=== PATIENT | male | born 1975 | race Caucasian/White ===

== ENCOUNTER 2025-07-13 09:50 | Inpatient (IN) | payer OTHER ==
[2025-07-13 10:10] VITALS: BMI 25.8
[2025-07-13] MEDS ORDERED: MAGNESIUM HYDROX 2400MG/30ML ORAL SUSPENSION 30 ML CUP PO PRN (10:25)
[2025-07-13] MEDS ORDERED: POLYETHYLENE GLYCOL (HEALTHYLAX) 3350 17 GM PACKET PO PRN (10:25)
[2025-07-13] MEDS ORDERED: BENZONATATE 200 MG CAPSULE PO PRN (10:25)
[2025-07-13] MEDS ORDERED: NALOXONE (NARCAN) HCL 4 MG/0.1 ML SPRAY NS PRN (10:25)
[2025-07-13] MEDS ORDERED: hydrOXYzine PAMOATE 25 MG CAPSULE (FP) PO PRN (10:25)
[2025-07-13] MEDS ORDERED: guaiFENesin 600 MG TABLET.ER (FP) PO PRN (10:25)
[2025-07-13] MEDS: NICOTINE 21 MG/24 HOURS TOPICAL PATCH TD SCH (11:38)
[2025-07-13] MEDS: NICOTINE POLACRILEX 2 MG LOZENGE BC PRN (19:05)
[2025-07-13] MEDS: THIAMINE 100 MG TABLET PO SCH (21:07)
[2025-07-13] MEDS: MELATONIN 5 MG TABLETS PO SCH (21:07)
[2025-07-14] MEDS: PRENATAL VITAMINS W/ FOLIC ACID TABLET (FP) PO SCH (09:37)
[2025-07-14 11:37] LABS: MCHC 32.7 g/dl (32.3-36.5); MEAN CELL VOLUME 89.0 fl (79.0-92.2); MEAN PLT VOLUME 12.5 fl (9.4-12.4); RDW 12.7 % (12.2-16.1)
[2025-07-14 12:02] LABS: GLUCOSE,RANDOM 189.0 mg/dL (74-106)
[2025-07-14 12:03] LABS: TOT PROT 7.5 g/dl (6.4-8.2)
[2025-07-14 12:04] LABS: CO2 27.0 mmol/L (21-32)
[2025-07-14 12:06] LABS: ALK PHOS 62.0 U/L (40-150)
[2025-07-14 12:08] LABS: CREATININE 1.1 mg/dL (0.55-1.3); SGOT/AST 29.0 U/L (5-34); SGPT/ALT 36.0 U/L (0-55)
[2025-07-14 17:04] LABS: MCHC 32.9 g/dl (32.3-36.5); MEAN CELL VOLUME 88.4 fl (79.0-92.2); MEAN PLT VOLUME 11.5 fl (9.4-12.4); RDW 12.7 % (12.2-16.1)
[2025-07-15] MEDS: BENZOCAINE/MENTHOL (CHLORASEPTIC ) LOZENGE MM PRN (07:51)
[2025-07-15 18:29] LABS: URINE APPEARANCE Clear; URINE BILIRUBIN Negative (NEGATIVE); URINE COLOR Yellow; URINE GLUCOSE (UA) Negative (NEGATIVE); URINE KETONE Negative (NEGATIVE); URINE LEUK ESTERASE Negative (NEGATIVE); URINE NITRITE Negative (NEGATIVE); URINE PROTEIN Negative (NEGATIVE); URINE UROBILINOGEN 0.2 mg/dL (0.2-1.0)
[2025-07-17] MEDS: IBUPROFEN 600 MG TABLET (FP) PO PRN (10:21)
[2025-07-18] MEDS: ACETAMINOPHEN 325 MG TABLET (FP) PO PRN (04:04)
[2025-07-20] MEDS: IBUPROFEN 400 MG TABLET (FP) PO PRN (04:14)
[2025-07-23] MEDS: MAG HYDROX/AL HYDROX/SIMETH 30 ML UNIT-DOSE CUP PO PRN (07:09)
[2025-07-24] MEDS: LOPERAMIDE HCL 2 MG CAPSULE PO PRN (14:34)
[2025-07-26] MEDS ORDERED: OXYMETAZOLINE 0.05% NASAL SOLUTION 15 ML BOTTLE NS PRN (10:49)
[2025-07-26] MEDS: OXYMETAZOLINE 0.05% NASAL SOLUTION 15 ML BOTTLE NS PRN (15:58)
[2025-07-31 06:37] VITALS: RESP 18
[2025-08-02 06:26] VITALS: TEMP 96.9
[2025-08-02 08:54] VITALS: BP 101/68; PULSE 81
== END 2025-08-02 09:55 | disposition home or self-care (01) | DRG 772 ==
LOC: YASAS 09:50 → SUATTDRO 09:50 → Y3NR 10:55 → Y3W 07-14 10:45 → Y5N 07-14 10:48
PROVIDERS: ADMIT Family Medicine; ATTEND Psychiatry & Neurology Pain Medicine
PROC: HZ42ZZZ Group Counseling for Substance Abuse Treatment, Cognitive-Behavioral (ICD-10-PCS; principal; 2025-07-13)
DX: F11.20 Opioid dependence, uncomplicated (principal); F14.20 Cocaine dependence, uncomplicated; F10.20 Alcohol dependence, uncomplicated; F17.210 Nicotine dependence, cigarettes, uncomplicated; F39 Unspecified mood [affective] disorder; F43.10 Post-traumatic stress disorder, unspecified; J45.909 Unspecified asthma, uncomplicated; F31.9 Bipolar disorder, unspecified
CPT/HCPCS: 36415; 72156-TC; 72157-TC; 72158-TC; 80053; 80307; 81003; 82962; 83036; 85025; 85027; 85651; 86140; 86780; 86803; 87070; 87389; 87522; 87637-QW; 93005; 93010